=== PATIENT | female | born 1985 | race Caucasian/White ===

== ENCOUNTER 2018-02-25 05:00 | Day surgery (SDC) | payer BC ==
[2018-02-24 14:42] LABS: HEMATOCRIT 39.8 % (36.0-48.0); HEMOGLOBIN 13.8 g/dL (12-16); MCH 30.3 pg (26.0-34.0); MCHC 34.7 g/dL (31.0-37.0); MCV 87.5 fL (80.0-100.0); MEAN PLATELET VOLUME 10.3 fL (7.4-10.4); RBC 4.55 10x6/uL (4.00-5.40); RDW 12.1 % (11.5-14.5); WBC 8.9 10x3/uL (4.8-10.8)
[~2018-02-25] VITALS: Ht 170.2 cm; Wt 108.9 kg
--- NOTE | ~2018-02-25 | OP ---
PATIENT NAME: STACI YAN MEDICAL RECORD: [id number] LOCATION:[facility] ADMISSION DATE: SURGEON: LIEN GIBSON DPM DATE OF OPERATION: 02/25/2018 PREOPERATIVE DIAGNOSIS: Plantar fasciitis, left foot. POSTOPERATIVE DIAGNOSIS: Plantar fasciitis, left foot. PROCEDURE: Instep plantar fasciotomy, left foot. ANESTHESIA: General with local infiltrate utilizing lidocaine and Marcaine plain, approximately 15 cc total on the surgical site. HEMOSTASIS: Left Esmarch around the ankle. PREOPERATIVE DETAILS: The patient was taken to the OR and placed on the operating table in a supine position followed by induction of general anesthesia and infiltration of local anesthetic, this time Esmarch was applied around the ankle. PROCEDURE NUMBER 1: Plantar fasciotomy, left foot. A 2 cm linear incision was made overlying the plantar fascia, just distal to the weightbearing surface of the heel. The incision was deepened down bluntly through subcutaneous tissue to the plantar fascia, which was visualized with the foot and toes held in dorsiflexion and extension. A cut was made through the plantar fascia through the medial band allowing significant elongation and gapping of the plantar fascia. Once satisfied, the wound was flushed and the skin was closed with 2-0 Vicryl in a simple interrupted technique followed by Dermabond. Adaptic, 4 x 4 and Conform were used to dress the wound followed by Coban. The Esmarch was removed. POSTOPERATIVE DETAILS: The patient tolerated the procedure well and left the OR with vital signs stable and vascular status at preoperative levels. The patient was transported to recovery per anesthesia in stable condition. TRANSINT:[id number] Voice Confirmation ID: [id number] DOCUMENT ID: [id number] LIEN GIBSON DPM at 0835 CC: [id number] DICTATION DATE: 02/25/18 0732 [employer] HANDLER: 02/25/18 1021 [facility] 02/25/[address] [id number]
[2018-02-25 05:47] VITALS: BP 131/83; Ht 170.2 cm; Wt 108.9 kg
[2018-02-25 06:08] LABS: HCG URINE NEGATIVE (NEGATIVE)
== END 2018-02-25 09:50 | disposition home or self-care (01) ==
LOC: D.OPS 05:00 → D.PAN 07:00 → D.OPS 07:00
PROVIDERS: Anesthesiology; Podiatrist
DX: M72.2 Plantar fascial fibromatosis (principal); Z01.812 Encounter for preprocedural laboratory examination